=== PATIENT | male | born 1960 | race African-American/Black ===

== ENCOUNTER 2021-10-09 00:48 | Emergency (ER) | payer MEDICAID ==
[~2021-10-09] VITALS: Ht 170.2 cm; Wt 70.0 kg
[~2021-10-09 00:48] MED LIST: ASPI-986 PO; CLOP75TA15 PO; COR3 PO; LIP40 PO; LISI-186 MT
[2021-10-09] MEDS ORDERED: MORPHINE SULFATE 4 MG/ML CPJ (NOT FOR IM USE) IV ONE (02:00)
[2021-10-09 02:45] LABS: BASOPHILS % 0.8 % (0.0-2.0); EOSINOPHILS % 3.4 % (0.0-5.0); HEMOGLOBIN. 11.8 g/dL (14.0-18.0); MEAN CORPUSCULAR HEMOGLOBIN 29.4 pg (28.0-32.0); MEAN CORPUSCULAR VOLUME 87.2 fL (80.0-94.0); MEAN PLATELET VOLUME 8.7 fl (7.4-10.4); MONOCYTES % 9.3 % (2.0-8.0); NEUTROPHILS % 61.5 % (40.0-76.0); PLATELET 277 x1000/uL (130-400); RED BLOOD CELL COUNT 4.02 mill/uL (4.7-6.1); RED CELL DISTRIBUTION WIDTH 14.6 % (11.6-14.6)
[2021-10-09] MEDS ORDERED: ASPIRIN 325MG EC TABLET PO SCH (02:45)
[2021-10-09 02:50] LABS: CHLORIDE 111 mEq/L (98-107)
[2021-10-09 02:54] LABS: ETHANOL BLOOD < 10 mg/dL
[2021-10-09 03:51] VITALS: BP 164/78
[2021-10-09] MEDS ORDERED: LISINOPRIL 5MG TABLET PO SCH (04:15)
== END 2021-10-09 04:12 | disposition left against medical advice (07) ==
LOC: ER 00:48
DX: R07.89 Other chest pain (principal); D64.9 Anemia, unspecified; F17.290 Nicotine dependence, other tobacco product, uncomplicated; E78.00 Pure hypercholesterolemia, unspecified; I25.2 Old myocardial infarction; I10 Essential (primary) hypertension; Z13.9 Encounter for screening, unspecified; Z79.82 Long term (current) use of aspirin
CPT/HCPCS: 36415; 71045; 80053; 80320; 83880; 84484; 85025; 93005; 96374; 99285; 99406; J2270; G0480

== ENCOUNTER 2022-04-28 21:21 | Emergency (ER) | payer MEDICAID ==
[~2022-04-28] VITALS: Ht 170.2 cm; Wt 69.1 kg
[2022-04-29] MEDS ORDERED: MAGNESIUM/ALUMINUM HYDROXIDE/SIMETHICONE 30ML UDC PO STA (00:13)
[2022-04-29] MEDS ORDERED: MAGNESIUM/ALUMINUM HYDROXIDE/SIMETHICONE 30ML UDC PO NR (01:00)
[2022-04-29] MEDS ORDERED: PROT20 MT (01:55)
[2022-04-29 05:18] LABS: BASOPHILS % 1.1 % (0.0-2.0); EOSINOPHILS % 2.3 % (0.0-5.0); HEMATOCRIT. 40.1 % (42.0-52.0); HEMOGLOBIN. 13.5 g/dL (14.0-18.0); LYMPHOCYTES % 27.1 % (20.0-50.0); MEAN CORPUSCULAR HEMOGLOBIN 29.9 pg (28.0-32.0); MEAN CORPUSCULAR VOLUME 88.3 fL (80.0-94.0); MEAN PLATELET VOLUME 8.6 fl (7.4-10.4); MONOCYTES % 7.7 % (2.0-8.0); NEUTROPHILS % 61.8 % (40.0-76.0); PLATELET 243 x1000/uL (130-400); RED BLOOD CELL COUNT 4.54 mill/uL (4.7-6.1); RED CELL DISTRIBUTION WIDTH 14.8 % (11.6-14.6)
[2022-04-29 05:38] LABS: CHLORIDE 107 mEq/L (98-107)
[2022-04-29 07:03] VITALS: BP 145/80
== END 2022-04-29 08:19 | disposition home or self-care (01) ==
LOC: ER 21:21
DX: K21.9 Gastro-esophageal reflux disease without esophagitis (principal); I10 Essential (primary) hypertension
CPT/HCPCS: 36415; 71045; 74176; 76705; 80053; 84484; 85025; 93005; 99285

== ENCOUNTER 2022-10-21 17:10 | Emergency (ER) | payer MEDICAID ==
[~2022-10-21] VITALS: Ht 170.2 cm; Wt 73.0 kg
[~2022-10-21 17:10] MED LIST changes: +PROT20 MT
[2022-10-21 17:23] VITALS: BP 172/93
[2022-10-21] MEDS ORDERED: LIDOCAINE HCL/PF 1% 10 MG/ML 5ML VIAL INFIL ONE (18:30)
[2022-10-21] MEDS ORDERED: CEPH500C2 MT (19:31)
[2022-10-21] MEDS ORDERED: ACET-2708 MT (19:38)
[2022-10-21] MEDS ORDERED: ACETAMINOPHEN 325MG TABLET PO ONE (19:45)
== END 2022-10-21 20:06 | disposition home or self-care (01) ==
LOC: ER 17:10
DX: L03.012 Cellulitis of left finger (principal); J45.909 Unspecified asthma, uncomplicated; E78.00 Pure hypercholesterolemia, unspecified; I10 Essential (primary) hypertension; Z68.25 Body mass index [BMI] 25.0-25.9, adult; Z79.82 Long term (current) use of aspirin; Z79.899 Other long term (current) drug therapy
CPT/HCPCS: 99282; 99283

== ENCOUNTER 2025-07-03 12:57 | Emergency (ER) | payer MEDICAID ==
[~2025-07-03] VITALS: Ht 172.7 cm; Wt 73.0 kg
[~2025-07-03 12:57] MED LIST changes: +AMLO10TA80 PO; +APIX5TAB MT; +APIX5TAB PO; +ASPI-1497 MT; -ASPI-986 PO; +ATOR-388 MT; +CLOP-31 MT; -CLOP75TA15 PO; +COR25 PO; -COR3 PO; +HYDR25TA PO; +LEVO25TA7 PO; -LIP40 PO; -LISI-186 MT; -PROT20 MT
[2025-07-03 13:07] VITALS: BP 154/87; PULSE 85; RESP 14; TEMP 97.8; O2SAT 96
[2025-07-03] MEDS ORDERED: ACETAMINOPHEN 500MG TABLET PO ONE (15:45)
== END 2025-07-03 16:04 | disposition left against medical advice (07) ==
LOC: ER 12:57
DX: M79.18 Myalgia, other site (principal); R07.9 Chest pain, unspecified
CPT/HCPCS: 93005; 99281; 99282